=== PATIENT | female | born 1945 | race Caucasian/White ===

== ENCOUNTER 2016-08-24 09:26 | Emergency (ER) | payer MEDICARE, OTHER ==
[~2016-08-24 09:26] MED LIST: 'PARAFON FORTE500 M1 PO; ALEVE220 MG PO; ANTIVERT/2525 M1 PO; ASPIRIN ADULT L81 M1 PO; FLAX SEED OIL1000 MG PO; GAVISCON 80 MG-1 CT1 PO; LIPITOR20 MG PO; LOVASTATIN20 MG PO; LOVASTATIN40 MG PO; MEDROL DOSEPAK4 MG PO; MINIPRESS2 M2 PO; MYCOLOG CREAM 115 GM T; PREDNISONE10 MG PO; PROTONIX20 MG PO; RANITIDINE HCL150 M1 PO; TRAMADOL HCL50 MG PO; TYLENOL325 M1 PO; VITAMIN B121000 MC1 PO; ZOFRAN ODT4 MG SL; [UNRECOGNIZED DRUG - OTHER] PO
[2016-08-24 10:12] LABS: BASO % 0.4 % (0.0-1.0); EOS # 0.1 10*3/uL (0.0-0.4); EOS % 1.3 % (1.0-4.0); HEMATOCRIT 49.1 % (37.0-47.0); HEMOGLOBIN 16.8 g/dl (12.0-16.0); LYMPH # 1.1 10*3/uL (1.3-4.4); LYMPH % 24.6 % (27.0-41.0); MEAN CELL VOLUME 96.3 fl (81.0-99.0); MEAN CORPUSCULAR HGB 32.9 pg (27.0-31.0); MEAN CORPUSCULAR HGB CONC 34.2 g/dl (33.0-37.0); MEAN PLATELET VOLUME 9.1 fl (9.6-12.3); MONO # 0.5 10*3/uL (0.1-1.0); MONO % 11.3 % (3.0-9.0); NEUT # 2.8 10*3/uL (2.3-7.9); NEUT % 62.2 % (47.0-73.0); PLATELET COUNT AUTOMATED 158 10*3/uL (130-400); RED CELL DISTRI WIDTH 12.3 % (0-14.5); WHITE BLOOD COUNT 4.5 10*3/uL (4.8-10.8)
[2016-08-24 10:27] LABS: ALBUMIN 3.9 gm/dl (3.1-4.5); ALKALINE PHOSPHATASE 87 U/L (45-117); BILIRUBIN, TOTAL 0.5 mg/dl (0.2-1.0); BUN 17 mg/dl (7-24); CARBON DIOXIDE 24 mmol/L (21-32); CHLORIDE 111 mmol/L (98-107); EST GLOM FILT AFRICAN AMERICAN > 60 ml/min; GLUCOSE 119 mg/dL (65-99); SGOT/AST 26 IU/L (3-35); SGPT/ALT 45 U/L (12-78); SODIUM 144 mmol/L (136-145); TOTAL PROTEIN 7.4 gm/dL (6.4-8.2)
[2016-08-24] MEDS ORDERED: CIPRO500 MG PO (11:14)
[2016-08-24] MEDS ORDERED: DUONEB 3 MG/3 ML3 M1 INH (11:14)
== END 2016-08-24 11:53 | disposition home or self-care (01) ==
LOC: ED 09:26
PROVIDERS: Registered Nurse
DX: J18.1 Lobar pneumonia, unspecified organism (principal); F17.200 Nicotine dependence, unspecified, uncomplicated; Z88.0 Allergy status to penicillin; Z88.1 Allergy status to other antibiotic agents; Z88.6 Allergy status to analgesic agent; Z88.2 Allergy status to sulfonamides; Z88.8 Allergy status to other drugs, medicaments and biological substances; Z79.82 Long term (current) use of aspirin; Z79.899 Other long term (current) drug therapy

== ENCOUNTER 2016-08-28 08:17 | Inpatient (IN) | payer MEDICARE ==
[2016-08-28] VITALS (8 sets, daily range): BP systolic 130–174; BP diastolic 71–96
[~2016-08-28] VITALS: Ht 160 cm; Wt 63.6 kg
--- NOTE | ~2016-08-28 | PROC NOTE ---
[place], [place] PROCEDURE NOTE NAME: [facility]INGHAM [id number] UNIT #: [id number] ROOM: 518 DOCTOR: JACQUE JAFFE BIRTHDATE: [birth year] DOS: MODIFIED BARIUM SWALLOW PAST MEDICAL HISTORY: The patient is a pleasant female, referred for modified barium swallow with a right mid lobe pneumonia diagnosis and history includes COPD exacerbation, GERD, history of gastric ulcer, atelectasis. She is currently on a regular diet, been n.p.o. where she had a bronchoscopy this morning as well as was n.p.o. until this study was completed. The patient reports history of bronchitis, but denies history of pneumonia. METHODS AND PROCEDURES: The patient was alert. Able to answer questions, communicate adequately, follow commands. She fed herself. She was seated upright in a wheelchair and the lateral view was taken. This study was done in conjunction with radiologist, Dr. Ronquillo. The patient was administered thin liquid via cup in single and sequential sips, pudding with barium paste of a teaspoon and a piece of turkey sandwich coated with barium. ORAL PHASE: The patient demonstrates normal oral phase, adequate mastication, adequate bolus formation, propulsion of a bolus. PHARYNGEAL PHASE: The patient demonstrated no residue. She demonstrated adequate airway protection. No penetration or aspiration. TREE DRILLER felt that her laryngeal elevation appeared to be slightly reduced, but it did not affect her swallow. She had a very functional normal swallow with all consistencies. RECOMMENDATIONS AND IMPRESSION: No therapy, no diet recommendations at this time due to functional oral and pharyngeal phases of the swallow with all consistencies. Thank you for this referral. JACQUE JAFFE CM:PROCNOTE:PROCEDURE NOTE [id number] JACQUE JAFFE
--- NOTE | ~2016-08-28 | CON ---
[place], [place] REPORT OF CONSULTATION NAME: KIERAN WILLINGHAM [facility] #: [id number] UNIT #: [id number] ROOM: 518 DOCTOR: DRU KILPATRICK MD BIRTHDATE: [birth year] DOS: 08/29/2016 REASON FOR CONSULTATION: Assess the patient for current abnormal findings on the CT scan of the chest and ongoing acute respiratory complaints with right middle lobe atelectasis. CONSULTATION REQUESTED BY: Hospitalist Services. HISTORY OF PRESENT ILLNESS: This is a 71-year-old white female for the patient who has been admitted to the hospital for the patient on 08/28/2016. She has been seen by Dr. Garrett Greene. The patient stated she has developed symptoms of increased chest congestion, coughing, shortness of breath for 2-1/2 weeks for this patient approximately. She has been noted progressive worsening of respiratory symptoms, trying to contact her physician, but not noted successful for any call back. She finally presented to the Emergency Room for this patient for further assessment. The patient was seen in the Emergency Room for the patient recently and started on the use of the corticosteroids as well as ciprofloxacin. The patient stated that she has been told she has some kind of pneumonia, with use of current medications and followup with the primary care physician was advised. However, the patient returned back to the Emergency Room as the symptoms had been noted significantly worsening and admitted to the hospital on 08/28/2016. The patient denies symptoms of chest pain. Coughing has been noted severe with minimal sputum expectoration. She has been noted symptoms of shortness of breath, occurs with exertion, with wheezing and tightness in the chest. She also stated that she does not have any chest pain, but complains of pain in the rib because of severe excessive cough. REVIEW OF SYSTEMS: CONSTITUTIONAL: Fatigue and tiredness noted without any fever or chills. EYES: Denies burning, redness, dryness for this patient, or discharge. EARS, NOSE, AND THROAT: No sore throat, hoarseness, otalgia, postnasal drainage, or epistaxis. CARDIOVASCULAR: Denies anginal pain, edema or pain of lower extremities. GASTROINTESTINAL: Denies nausea, vomiting, diarrhea, abdominal pain, hematemesis, melena, dysphagia, or abnormal weight loss history. GENITOURINARY: Denies dysuria, suprapubic pain, hematuria. MUSCULOSKELETAL: Denies acute joint pain, redness, or tenderness. SKIN: Denies lesions or rashes. CENTRAL NERVOUS SYSTEM: Denies any dizziness, headache, diplopia, or syncopal episodes. Remaining systems were reviewed with the patient, they were noted all negative. PAST MEDICAL HISTORY: Reported: 1. Gastroesophageal reflux. 2. Bronchitis, which occurs yearly as per patient and treated with the antibiotics for the patient. 3. Hyperlipidemia. 4. Peptic ulcer disease. [place], [place] REPORT OF CONSULTATION NAME: KIERAN WILLINGHAM UNIT #: [id number] ROOM: 518 DOCTOR: DRU KILPATRICK MD BIRTHDATE: [birth year] PAST SURGICAL HISTORY: Denies any major surgeries. SOCIAL HISTORY: The patient stated that she lives in her own home. The patient said she is . Does not have any children. She has been noted history of tobacco use for this patient at younger age, smoked about 3-5 cigarettes a day. Stated that she has not smoked cigarettes for the past 2-1/2 weeks. Denies history of alcohol use or any illicit drug use. FAMILY HISTORY: Both parents have been from complications related to the heart problem and diabetes mellitus. MEDICATIONS: The home medications for the patient, which were listed at the time of admission by the nursing staff for the patient and medication reconciliation use of p.r.n. Tylenol, aspirin, recent prescription of ciprofloxacin, tapering prednisone, vitamin B12, fish oil, flaxseed oil, DuoNeb, Minipress, and ranitidine. The patient also using Lipitor. DRUG ALLERGIES: NOTED MULTIPLE ALLERGIES THAT INCLUDE SULFA DRUGS, PENICILLIN, NEOSPORIN, CEFTIN, KEFLEX, TRILIPIX, DOXYCYCLINE, DILTIAZEM, ERYTHROMYCIN, LEVAQUIN, LISINOPRIL, NIACIN, DILANTIN, AND TRAMADOL. PHYSICAL EXAMINATION: GENERAL: This is a 71-year-old female who has been noted somewhat nervous and anxious at this time. The patient's height was recorded by the nursing staff at the time of admission with height of 5 feet 3 inches, weight of 140 pounds, BMI 24.8. VITAL SIGNS: Normal temperature, respiratory rate 20-18, heart rate 75-81, blood pressure 119/66-120/89. The pulse oxygen saturation noted on room air 94% saturation. HEENT: Examination shows head was atraumatic. Eyes nonicterus. NECK: Supple. CARDIOVASCULAR: ____. LUNGS: Noted with generalized reduction of the breath sounds were noted with diffuse expiratory wheezing in the lungs bilaterally. There were no crackles. ABDOMEN: Soft, nontender. Bowel sounds are present. EXTREMITIES: Show no edema, clubbing, cyanosis. CENTRAL NERVOUS SYSTEM: Cranial nerves 2-12 intact. No focal deficits. MUSCULOSKELETAL: No acute deformities. SKIN: No lesions or rashes. LABORATORY DATA: CBC of the patient of 08/24/2016 shows in the Emergency Room visit, WBC count 4.5, hemoglobin 16.8, hematocrit 49.1 with a normal platelet count. CMP for this patient on that day for the patient was noted with BUN and creatinine was normal. Chest x-ray of the patient that was done 08/24/2016 for the patient showed right middle lobe pneumonia. CBC that was done for the patient on 08/28/2016, WBC count was normal, hemoglobin 16.9, hematocrit 49.1, platelet count was normal. Lactic acid yesterday normal. CMP of the patient noted BUN and creatinine for this patient and the other CMP normal. Chest x-ray that was done yesterday for the patient essentially noted with reduction of the previously noted infiltration with area of atelectasis will be considered. CT [place], [place] REPORT OF CONSULTATION NAME: KIERAN WILLINGHAM UNIT #: [id number] ROOM: 518 DOCTOR: [facility] BIR[facility] [birth year] scan of the chest that was done yesterday for the patient was personally reviewed, shows the patient was noted with pleural based density with area of atelectasis and infiltration for the patient as well as right middle lobe atelectasis for the patient as well. A 3 mm noncalcified pulmonary nodule noted in the left upper lung as well. IMPRESSION: 1. The patient currently admitted to the hospital with history of multiple antibiotic allergies, mostly all the classes, has been treated for this patient for acute exacerbation of ____ chronic obstructive pulmonary disease with past history of tobacco use and bronchial asthma and acute exacerbation with worsening of symptoms. 2. Current infiltration with area of atelectasis of the patient's right middle lobe, rule out endobronchial obstruction for the patient from the mucus. Any endobronchial lesions or other etiology remains in consideration. 3. A 3 mm left upper lobe pulmonary nodule for the patient was also noted for the patient. At this time, the significance was unknown. 4. General anxiety disorder as well for this patient was noted to significant anxiety as well. PLAN OF TREATMENT: For further assessment, the patient has been suggested about fiberoptic bronchoscopy for the patient to help assess the right middle lobe for this patient's pathology. Based on that, further change in treatment will be recommended. In the meantime, continue antibiotics. Continue medical management of acute exacerbation of COPD/bronchial asthma with use of the corticosteroids and frequent bronchodilators administration. Other supportive plan of management to be continued as well as in progress. Further treatment changes will be done based on progression of the illnesses. The patient accepted the bronchoscopy for the patient after the explanation of the risks and the benefits. She is already kept n.p.o. past midnight for this patient and will be undergoing the bronchoscopy today. The current abnormality which is noted on CT scan definitely needs to be monitored for the patient with further followup CT scan after the appropriate treatment completion in about 3-4 weeks to reassess to document the resolution of current abnormality for any underlying mass lesion present for this patient would require further addition assessment. The diaphragm also appeared to be somewhat elevated for this patient with the current study as well, to be assessed for possibility to rule out any diaphragmatic paresis or paralysis. The sniff test for this patient will be ordered for this patient for that purpose of this patient to rule out the right diaphragmatic paralysis. Pulmonary nodule in the left upper lung will be monitored with followup CT scans. Continued abstinence from tobacco use was advised. Thanks for allowing me to participate in the care of this patient. [place], [place] REPORT OF CONSULTATION NAME: KIERAN WILLINGHAM UNIT #: [id number] ROOM: 518 DOCTOR: DRU KILPATRICK MD BIRTHDATE: [address] MD CM:CONSTR:REPORT OF CONSULTATION 1141 08/29/16 1607 interface
--- NOTE | ~2016-08-28 | PROC NOTE ---
[place], [place] PROCEDURE NOTE NAME: [facility]: [id number] UNIT #: [id number] ROOM: 518 DOCTOR: ARIANA CAROLINA MD,DRU BIRTHDATE: [birth year] DOS: 08/29/2016 PREOPERATIVE DIAGNOSIS: The patient with current abnormal finding on CT scan of the chest, rule out endobronchial obstruction. POSTOPERATIVE DIAGNOSES: The patient with current abnormal finding on CT scan of the chest, rule out endobronchial obstruction with obstruction of the right mainstem bronchus of the patient noted with large amount of mucopurulent material for this patient. There were no discrete endobronchial lesions noted. PROCEDURE: Removal of the mucus plugs ____ noted in the remaining endobronchial tree. PROCEDURE DESCRIPTION: Informed consent obtained from the patient. The patient already n.p.o. past midnight for the procedure. Conscious sedation administered by the Anesthesia Department. After achieving appropriate sedation, airway introduced into the mouth. Bronchoscope advanced into the airway into the laryngeal area. Epiglottis and vocal cords were seen. The bronchoscope advanced to the vocal cord into the tracheal lumen. Tracheal lumen was identified, noted moderate amount of mucopurulent material, suctioned out at the kiya level. Left upper, lingular lower lobe bronchial opening noted moderate thick mucus secretions and mild purulent secretions causing impaction of the endobronchial subsegments bilaterally, which was suctioned out with the help of normal saline wash and sent for cultures. Right mainstem bronchus noted copious amount of mucopurulent material which was suctioned out. Almost complete occlusion of the right middle lobe endobronchial tree was noted with similar material which was mucopurulent for the patient, removed with the help of normal saline wash. There were no discrete endobronchial lesions noted up to second and third generation endobronchial tree. Right lower lobe opening for this patient and left upper lobe opening for the patient was also clear from the mucus impaction as well. Procedure well tolerated. The BAL specimen was obtained from the right middle lobe as well. The patient tolerated the procedure well without any complications. Postoperative findings will be discussed with the patient once the patient recovers the effects of acute sedation. DRU LANE MD CM:PROCNOTE:PROCEDURE NOTE [id number] [id number] DRU CAROLINA MD
--- NOTE | ~2016-08-28 | PR ---
[place], [place] PROGRESS NOTE NAME: KIERAN WILLINGHAM [facility] #: [id number] UNIT #: [id number] ROOM: 518 DOCTOR: ARIANA CAROLINA MD,DRU BIRTHDATE: [birth year] DOS: 08/31/2016 SUBJECTIVE: She has been showing progressive reduction and improvement in the respiratory symptoms gradually. Coughing has been subsiding. There were no symptoms of chest pain or any abdominal pain. OBJECTIVE: VITAL SIGNS: For the patient which has been recorded showed normal temperature, respiratory rate 18, heart rate of 62, blood pressure 128/80. The pulse oxygen saturation of the patient recorded as 95% on room air. HEENT: Examination shows no acute change. NECK: Supple. CARDIOVASCULAR: S1, S2 audible. LUNGS: Noted without any wheezing or crackles. ABDOMEN: Soft, nontender. LABORATORY DATA: CBC of this morning, WBC count 17.4, remaining CBC was normal. Chest x-ray, the patient was noted with significant reduction and improvement in the aeration of the lungs for the patient with acute pneumonia. Culture of the bronchial washing of the patient and the spontaneous sputum culture was noted as normal maral. IMPRESSION: The patient with progressive resolution and improvement has been noted for acute exacerbation of COPD with acute bronchitis as well as resolving acute pneumonia progressively with current medical management. PLAN OF TREATMENT: The patient could be considered discharge on tapering dose of prednisone and bronchodilators, antibiotics for this patient. Other supportive therapy, plan of management to be continued as well as in progress. Abstinence from tobacco use was recommended. DRU LANE MD CM:PNTRANS [id number] DRU CAROLINA MD 08/31/16 2333 interface
--- NOTE | ~2016-08-28 | PR ---
[place], [place] PROGRESS NOTE NAME: KIERAN WILLINGHAM UNIT #: [id number] ROOM: 518 DOCTOR: ARIANA CAROLINA MD,DRU BIRTHDATE: [birth year] DOS: 08/30/2016 SUBJECTIVE: The patient seen and examined on 08/30/2016. She has been noted comfortable at this time with reduction of symptoms of cough. She has been noted sputum expectoration. Bronchoscopy completed yesterday without any difficulty. Denies symptoms of chest pain or any abdominal pain. OBJECTIVE: VITAL SIGNS: Normal temperature, respiratory rate 18, heart rate of 60, blood pressure 132/82. Intake for the patient was . Output 2300 mL. Pulse oxygen saturation on room air 93% saturation. HEENT: Showed no acute change. NECK: Supple. CARDIOVASCULAR SYSTEM: S1, S2 audible. LUNGS: The patient noted with scattered wheezing of the lungs. Crackles noted in the right lung. ABDOMEN: Soft, nontender. LABORATORY DATA: The bronchial washing of the patient, Gram stain for the patient was noted with normal maral preliminary in the culture results. The Gram stain noted many white blood cells, moderate epithelial cells, rare gram-positive cocci in pairs. CMP of the patient that was done on 08/30/2016 shows glucose 148, BUN and creatinine was normal. Albumin 2.8. Total protein 5.8. CBC: WBC count 14.2 today, hemoglobin and hematocrit were normal. Blood culture from the reported no bacterial growth preliminary and final cultures results were pending. Modified barium swallow was noted as normal. IMPRESSION: 1. The patient who has been currently treated in the hospital noted with acute pneumonia with area of superimposed atelectasis the patient in the right middle lobe. 2. 3 mm solitary nodule for the patient was noted in the left upper lobe as well. 3. Generalized anxiety disorder. PLAN OF TREATMENT: Monitor culture results. Repeat chest x-ray in the morning for reassessment. Continuation of the bronchodilators. Modification of antibiotics. The patient based on the culture results. Other supportive therapy, plan of management as well. Usual care. Further treatment changes will be done based on the patient progression of the illness. [place], [place] PROGRESS NOTE NAME: KIERAN WILLINGHAM UNIT #: [id number] ROOM: 518 DOCTOR: DRU KILPATRICK MD BIRTHDATE: [address] MD CM:CHESTER [id number] DRU CAROLINA MD 08/30/16 1335 interface
[~2016-08-28 08:17] MED LIST changes: +CIPRO500 MG PO; +DUONEB 3 MG/3 ML3 M1 INH
[2016-08-28 09:18] LABS: BASO % 0.3 % (0.0-1.0); EOS # 0.1 10*3/uL (0.0-0.4); EOS % 0.9 % (1.0-4.0); HEMATOCRIT 49.1 % (37.0-47.0); HEMOGLOBIN 16.9 g/dl (12.0-16.0); IG # 0.1 10*3/uL (0.0-0.1); LYMPH # 1.5 10*3/uL (1.3-4.4); LYMPH % 21.7 % (27.0-41.0); MEAN CELL VOLUME 95.5 fl (81.0-99.0); MEAN CORPUSCULAR HGB 32.9 pg (27.0-31.0); MEAN CORPUSCULAR HGB CONC 34.4 g/dl (33.0-37.0); MEAN PLATELET VOLUME 8.7 fl (9.6-12.3); MONO # 0.3 10*3/uL (0.1-1.0); MONO % 4.9 % (3.0-9.0); NEUT # 4.8 10*3/uL (2.3-7.9); NEUT % 71.3 % (47.0-73.0); PLATELET COUNT AUTOMATED 162 10*3/uL (130-400); RED BLOOD COUNT 5.14 10*6/uL (4.10-5.10); WHITE BLOOD COUNT 6.7 10*3/uL (4.8-10.8)
[2016-08-28 09:34] LABS: ALBUMIN 3.7 gm/dl (3.1-4.5); ALKALINE PHOSPHATASE 82 U/L (45-117); BILIRUBIN, TOTAL 0.7 mg/dl (0.2-1.0); BUN 12 mg/dl (7-24); CARBON DIOXIDE 26 mmol/L (21-32); CHLORIDE 109 mmol/L (98-107); EST GLOM FILT AFRICAN AMERICAN > 60 ml/min; GLUCOSE 112 mg/dL (65-99); POTASSIUM 3.9 mmol/L (3.5-5.1); SGOT/AST 17 IU/L (3-35); SGPT/ALT 35 U/L (12-78); SODIUM 143 mmol/L (136-145); TOTAL PROTEIN 7.1 gm/dL (6.4-8.2)
[2016-08-28 09:57] LABS: BILIRUBIN NEGATIVE (NEGATIVE); BLOOD NEGATIVE (NEGATIVE); CLARITY SL CLOUDY (CLEAR); COLOR YELLOW (YELLOW); GLUCOSE NEGATIVE (NEGATIVE); KETONE NEGATIVE (NEGATIVE); LEUKO ESTERASE NEGATIVE (NEGATIVE); NITRITE NEGATIVE (NEGATIVE); PROTEIN NEGATIVE (NEGATIVE); SPECIFIC GRAVITY >= 1.030 (1.005-1.030); UROBILINOGEN 0.2 E.U./dl (0.2-1.0)
[2016-08-28 10:14] LABS: BACTERIA TRACE; URINE REFLEX COMMENT NO (NO); WBC 0-2 wbc/hpf (0-5)
[2016-08-28 10:15] LABS: MUCOUS 1+
[2016-08-28 18:11] LABS: CKMB 1.2 ng/ml (0.5-3.6); CPK 98 U/L (26-192)
[2016-08-28 18:15] LABS: TROPONIN I < 0.015 ng/ml (<0.045)
[2016-08-28 21:24] LABS: BILIRUBIN NEGATIVE (NEGATIVE); BLOOD NEGATIVE (NEGATIVE); CLARITY SL CLOUDY (CLEAR); COLOR YELLOW (YELLOW); GLUCOSE 3+ (NEGATIVE); KETONE TRACE (NEGATIVE); LEUKO ESTERASE NEGATIVE (NEGATIVE); NITRITE NEGATIVE (NEGATIVE); PROTEIN NEGATIVE (NEGATIVE); UROBILINOGEN 0.2 E.U./dl (0.2-1.0)
[2016-08-28 21:32] LABS: BACTERIA 1+; URINE REFLEX COMMENT NO (NO)
[2016-08-29] VITALS (9 sets, daily range): BP systolic 119–159; BP diastolic 61–89
[2016-08-29 00:49] LABS: CKMB 1.5 ng/ml (0.5-3.6); CPK 95 U/L (26-192)
[2016-08-29 00:50] LABS: TROPONIN I < 0.015 ng/ml (<0.045)
[2016-08-29 06:34] LABS: BASO % 0.1 % (0.0-1.0); HEMATOCRIT 45.2 % (37.0-47.0); HEMOGLOBIN 15.4 g/dl (12.0-16.0); IG # 0.2 10*3/uL (0.0-0.1); LYMPH # 1.1 10*3/uL (1.3-4.4); LYMPH % 7.3 % (27.0-41.0); MEAN CELL VOLUME 96.2 fl (81.0-99.0); MEAN CORPUSCULAR HGB 32.8 pg (27.0-31.0); MEAN CORPUSCULAR HGB CONC 34.1 g/dl (33.0-37.0); MEAN PLATELET VOLUME 9.3 fl (9.6-12.3); MONO # 0.4 10*3/uL (0.1-1.0); MONO % 2.4 % (3.0-9.0); NEUT # 13.2 10*3/uL (2.3-7.9); NEUT % 89.2 % (47.0-73.0); PLATELET COUNT AUTOMATED 201 10*3/uL (130-400); WHITE BLOOD COUNT 14.9 10*3/uL (4.8-10.8)
[2016-08-29 06:42] LABS: CKMB 1.9 ng/ml (0.5-3.6)
[2016-08-29 06:47] LABS: CPK 65 U/L (26-192); TROPONIN I < 0.015 ng/ml (<0.045)
[2016-08-29 06:48] LABS: HEMOGLOBIN A1c 5.3 % (4.8-5.6)
[2016-08-29 07:06] LABS: ALBUMIN 3.1 gm/dl (3.1-4.5); ALKALINE PHOSPHATASE 93 U/L (45-117); BILIRUBIN, TOTAL 0.4 mg/dl (0.2-1.0); BUN 15 mg/dl (7-24); CARBON DIOXIDE 20 mmol/L (21-32); CHLORIDE 113 mmol/L (98-107); CHOLESTEROL 127 mg/dL (<200); EST GLOM FILT AFRICAN AMERICAN > 60 ml/min; FREE T4 1.06 ng/dl (0.76-1.46); GLUCOSE 163 mg/dL (65-99); HDL CHOLESTEROL 44 mg/dl (40-60); LDL CHOLESTEROL 58 mg/dL (9-159); PHOSPHOROUS 2.3 mg/dL (2.5-4.9); POTASSIUM 3.9 mmol/L (3.5-5.1); SGOT/AST 18 IU/L (3-35); SGPT/ALT 31 U/L (12-78); SODIUM 145 mmol/L (136-145); TOTAL PROTEIN 6.3 gm/dL (6.4-8.2); TRIGLYCERIDES 125 mg/dl (<150); VLDL CHOLESTEROL 25 mg/dL (6-40)
[2016-08-29 07:07] LABS: INTERNATIONAL NORM RATIO 0.9 (2.0-3.5)
[2016-08-29 07:11] LABS: THYROID STIM HORMONE (HS) 0.265 uIU/ml (0.358-4.75)
[2016-08-29 07:44] LABS: VITAMIN D, 25-HYDROXY 31.6 ng/mL (30-100)
[2016-08-29 07:45] LABS: FOLIC ACID 15.61 ng/mL (>5.38)
[2016-08-30] VITALS (7 sets, daily range): BP systolic 88–138; BP diastolic 46–82
[2016-08-30 07:19] LABS: BASO % 0.1 % (0.0-1.0); HEMATOCRIT 43.2 % (37.0-47.0); HEMOGLOBIN 14.6 g/dl (12.0-16.0); IG # 0.2 10*3/uL (0.0-0.1); MEAN CELL VOLUME 97.5 fl (81.0-99.0); MEAN CORPUSCULAR HGB CONC 33.8 g/dl (33.0-37.0); MEAN PLATELET VOLUME 8.9 fl (9.6-12.3); MONO # 0.4 10*3/uL (0.1-1.0); MONO % 2.9 % (3.0-9.0); NEUT # 12.6 10*3/uL (2.3-7.9); NEUT % 88.9 % (47.0-73.0); PLATELET COUNT AUTOMATED 177 10*3/uL (130-400); RED BLOOD COUNT 4.43 10*6/uL (4.10-5.10); RED CELL DISTRI WIDTH 12.4 % (0-14.5); WHITE BLOOD COUNT 14.2 10*3/uL (4.8-10.8)
[2016-08-30 07:47] LABS: ALBUMIN 2.9 gm/dl (3.1-4.5); ALKALINE PHOSPHATASE 67 U/L (45-117); BILIRUBIN, TOTAL 0.5 mg/dl (0.2-1.0); BUN 13 mg/dl (7-24); CARBON DIOXIDE 24 mmol/L (21-32); CHLORIDE 114 mmol/L (98-107); EST GLOM FILT AFRICAN AMERICAN > 60 ml/min; GLUCOSE 148 mg/dL (65-99); POTASSIUM 4.3 mmol/L (3.5-5.1); SGOT/AST 15 IU/L (3-35); SGPT/ALT 28 U/L (12-78); SODIUM 145 mmol/L (136-145); TOTAL PROTEIN 5.8 gm/dL (6.4-8.2)
[2016-08-30 12:09] LABS: ACID FAST SPEC PROCESSING Concentration (.)
[2016-08-31] VITALS: BP 118/63
[2016-08-31 06:00] VITALS: BP 130/78
[2016-08-31 06:15] LABS: HEMATOCRIT 43.4 % (37.0-47.0); HEMOGLOBIN 14.9 g/dl (12.0-16.0); MEAN CELL VOLUME 97.3 fl (81.0-99.0); MEAN CORPUSCULAR HGB 33.4 pg (27.0-31.0); MEAN CORPUSCULAR HGB CONC 34.3 g/dl (33.0-37.0); MEAN PLATELET VOLUME 9.1 fl (9.6-12.3); PLATELET COUNT AUTOMATED 195 10*3/uL (130-400); RED BLOOD COUNT 4.46 10*6/uL (4.10-5.10); RED CELL DISTRI WIDTH 12.4 % (0-14.5); WHITE BLOOD COUNT 17.4 10*3/uL (4.8-10.8)
[2016-08-31 06:39] LABS: BUN 17 mg/dl (7-24); CARBON DIOXIDE 24 mmol/L (21-32); CHLORIDE 110 mmol/L (98-107); EST GLOM FILT AFRICAN AMERICAN > 60 ml/min; GLUCOSE 152 mg/dL (65-99); POTASSIUM 4.4 mmol/L (3.5-5.1); SODIUM 143 mmol/L (136-145)
[2016-08-31 06:53] LABS: METAMYELOCYTES 2 % (0-0); MONOCYTE # 0.3 10*3/uL (0.1-1.0); NEUTROPHIL # 15.7 10*3/uL (2.3-7.9); NEUTROPHILS 90 % (47-73); PLATELET SUFFICIENCY NORMAL (NORMAL); TOTAL CELLS COUNTED 100 #CELLS
[2016-08-31 08:00] VITALS: BP 128/80
[2016-08-31 12:00] VITALS: BP 122/76
[2016-08-31] MEDS ORDERED: MUCINEX ER600 MG PO (14:06)
[2016-08-31] MEDS ORDERED: PREDNISONE10 MG PO (14:06)
[2016-08-31] MEDS ORDERED: LEVAQUIN750 M1 PO (14:06)
[2016-08-31] MEDS ORDERED: CIPRO500 MG PO (14:09)
[2016-08-31] MEDS ORDERED: DUONEB 3 MG/3 ML3 M1 INH (14:20)
== END 2016-08-31 16:00 | disposition home or self-care (01) | DRG 163 ==
LOC: ED 08:17 → EDHOLD 11:13 → 5E 11:13
PROVIDERS: Emergency Medicine; Hospitalist; Internal Medicine; Internal Medicine Critical Care Medicine
PROC: BD1BYZZ Fluoroscopy of Mouth/Oropharynx using Other Contrast (ICD-10-PCS; principal; 2016-08-29)
PROC: 0BCD8ZZ Extirpation of Matter from Right Middle Lung Lobe, Via Natural or Artificial Opening Endoscopic (ICD-10-PCS; 2016-08-29)
PROC: 0BC88ZZ Extirpation of Matter from Left Upper Lobe Bronchus, Via Natural or Artificial Opening Endoscopic (ICD-10-PCS; 2016-08-29)
PROC: 0BCB8ZZ Extirpation of Matter from Left Lower Lobe Bronchus, Via Natural or Artificial Opening Endoscopic (ICD-10-PCS; 2016-08-29)
PROC: 0BC48ZZ Extirpation of Matter from Right Upper Lobe Bronchus, Via Natural or Artificial Opening Endoscopic (ICD-10-PCS; 2016-08-29)
PROC: 0BC58ZZ Extirpation of Matter from Right Middle Lobe Bronchus, Via Natural or Artificial Opening Endoscopic (ICD-10-PCS; 2016-08-29)
PROC: 0BC98ZZ Extirpation of Matter from Lingula Bronchus, Via Natural or Artificial Opening Endoscopic (ICD-10-PCS; 2016-08-29)
PROC: 0BC68ZZ Extirpation of Matter from Right Lower Lobe Bronchus, Via Natural or Artificial Opening Endoscopic (ICD-10-PCS; 2016-08-29)
DX: J44.0 Chronic obstructive pulmonary disease with (acute) lower respiratory infection (principal); J18.9 Pneumonia, unspecified organism; E78.5 Hyperlipidemia, unspecified; J44.1 Chronic obstructive pulmonary disease with (acute) exacerbation; F17.210 Nicotine dependence, cigarettes, uncomplicated; K21.9 Gastro-esophageal reflux disease without esophagitis; J20.9 Acute bronchitis, unspecified; J45.909 Unspecified asthma, uncomplicated; F41.1 Generalized anxiety disorder; R91.1 Solitary pulmonary nodule; Z88.1 Allergy status to other antibiotic agents; Z88.8 Allergy status to other drugs, medicaments and biological substances; Z79.82 Long term (current) use of aspirin; Z79.2 Long term (current) use of antibiotics; Z79.899 Other long term (current) drug therapy; Z87.11 Personal history of peptic ulcer disease; Z83.3 Family history of diabetes mellitus; Z88.0 Allergy status to penicillin; Z71.6 Tobacco abuse counseling; Z82.49 Family history of ischemic heart disease and other diseases of the circulatory system

== ENCOUNTER → 2016-10-08 | Outpatient (CLI) | payer MEDICARE ==
[~2016-10-08] MED LIST changes: +LEVAQUIN750 M1 PO; +MUCINEX ER600 MG PO
== END | disposition home or self-care (01) ==
LOC: RAD 12:33
DX: M25.552 Pain in left hip (principal); R10.30 Lower abdominal pain, unspecified

== ENCOUNTER 2017-05-23 11:54 | Emergency (ER) | payer MEDICARE ==
[~2017-05-23] VITALS: Ht 160 cm; Wt 63.5 kg
[2017-05-23] MEDS ORDERED: FLONASE ALLERG9.9 ML NAS (13:55)
[2017-05-23] MEDS ORDERED: ROBITUSSIN DM 105 ML PO (13:55)
[2017-05-23] MEDS ORDERED: CLARITIN10 MG PO (13:55)
[2017-05-23] MEDS ORDERED: PREDNISONE10 MG PO (13:55)
== END 2017-05-23 14:53 | disposition home or self-care (01) ==
LOC: ED 11:54
DX: J20.9 Acute bronchitis, unspecified (principal); K21.9 Gastro-esophageal reflux disease without esophagitis; E78.5 Hyperlipidemia, unspecified; F17.210 Nicotine dependence, cigarettes, uncomplicated; Z87.01 Personal history of pneumonia (recurrent); Z79.82 Long term (current) use of aspirin; Z79.899 Other long term (current) drug therapy; Z88.6 Allergy status to analgesic agent; Z88.0 Allergy status to penicillin; Z88.2 Allergy status to sulfonamides; Z88.3 Allergy status to other anti-infective agents; Z88.8 Allergy status to other drugs, medicaments and biological substances

== ENCOUNTER 2017-07-20 11:12 | Emergency (ER) | payer MEDICARE ==
[~2017-07-20] VITALS: Ht 160 cm; Wt 61.2 kg
[~2017-07-20 11:12] MED LIST changes: +CLARITIN10 MG PO; +FLONASE ALLERG9.9 ML NAS; +ROBITUSSIN DM 105 ML PO
[2017-07-20 12:24] LABS: BASO % 0.4 % (0.0-1.0); EOS % 0.4 % (1.0-4.0); HEMATOCRIT 49.8 % (37.0-47.0); HEMOGLOBIN 16.9 g/dl (12.0-16.0); LYMPH # 1.4 10*3/uL (1.3-4.4); LYMPH % 17.2 % (27.0-41.0); MEAN CORPUSCULAR HGB 33.3 pg (27.0-31.0); MEAN CORPUSCULAR HGB CONC 33.9 g/dl (33.0-37.0); MEAN PLATELET VOLUME 9.2 fl (9.6-12.3); MONO # 0.5 10*3/uL (0.1-1.0); MONO % 5.6 % (3.0-9.0); NEUT # 6.4 10*3/uL (2.3-7.9); NEUT % 75.6 % (47.0-73.0); PLATELET COUNT AUTOMATED 163 10*3/uL (130-400); RED BLOOD COUNT 5.08 10*6/uL (4.10-5.10); RED CELL DISTRI WIDTH 12.6 % (0-14.5); WHITE BLOOD COUNT 8.4 10*3/uL (4.8-10.8)
[2017-07-20 12:42] LABS: ALBUMIN 3.9 gm/dl (3.1-4.5); ALKALINE PHOSPHATASE 83 U/L (45-117); BUN 15 mg/dl (7-24); CHLORIDE 108 mmol/L (98-107); CREATININE 0.75 mg/dL (0.55-1.02); POTASSIUM 4.5 mmol/L (3.5-5.1); SGOT/AST 19 IU/L (3-35); SGPT/ALT 33 U/L (12-78); SODIUM 143 mmol/L (136-145); TOTAL PROTEIN 7.3 gm/dL (6.4-8.2)
[2017-07-20 12:43] LABS: TROPONIN I < 0.015 ng/ml (<0.045)
[2017-07-20] MEDS ORDERED: PREDNISONE10 MG PO (14:39)
== END 2017-07-20 15:04 | disposition home or self-care (01) ==
LOC: ED 11:12
PROVIDERS: Nurse Practitioner Family
DX: J20.9 Acute bronchitis, unspecified (principal); R03.0 Elevated blood-pressure reading, without diagnosis of hypertension; J44.1 Chronic obstructive pulmonary disease with (acute) exacerbation; K21.9 Gastro-esophageal reflux disease without esophagitis; Z88.0 Allergy status to penicillin; Z88.2 Allergy status to sulfonamides; Z88.1 Allergy status to other antibiotic agents; Z88.5 Allergy status to narcotic agent; Z79.82 Long term (current) use of aspirin; Z79.899 Other long term (current) drug therapy

== ENCOUNTER 2017-08-05 09:05 | Emergency (ER) | payer MEDICARE ==
[~2017-08-05] VITALS: Wt 61.2 kg
[2017-08-05 10:04] LABS: BASO % 0.4 % (0.0-1.0); EOS # 0.1 10*3/uL (0.0-0.4); EOS % 1.3 % (1.0-4.0); HEMATOCRIT 54.1 % (37.0-47.0); HEMOGLOBIN 17.9 g/dl (12.0-16.0); LYMPH # 1.6 10*3/uL (1.3-4.4); LYMPH % 20.1 % (27.0-41.0); MEAN CELL VOLUME 100.4 fl (81.0-99.0); MEAN CORPUSCULAR HGB 33.2 pg (27.0-31.0); MEAN CORPUSCULAR HGB CONC 33.1 g/dl (33.0-37.0); MEAN PLATELET VOLUME 8.7 fl (9.6-12.3); MONO # 0.5 10*3/uL (0.1-1.0); MONO % 6.2 % (3.0-9.0); NEUT # 5.6 10*3/uL (2.3-7.9); NEUT % 71.5 % (47.0-73.0); PLATELET COUNT AUTOMATED 151 10*3/uL (130-400); RED BLOOD COUNT 5.39 10*6/uL (4.10-5.10); RED CELL DISTRI WIDTH 12.7 % (0-14.5); WHITE BLOOD COUNT 7.8 10*3/uL (4.8-10.8)
[2017-08-05 10:11] LABS: INTERNATIONAL NORM RATIO 0.9 (2.0-3.5)
[2017-08-05 10:18] LABS: ALKALINE PHOSPHATASE 78 U/L (45-117); BUN 16 mg/dl (7-24); CHLORIDE 105 mmol/L (98-107); CREATININE 0.72 mg/dL (0.55-1.02); POTASSIUM 4.1 mmol/L (3.5-5.1); SGOT/AST 20 IU/L (3-35); SGPT/ALT 39 U/L (12-78); SODIUM 140 mmol/L (136-145); TOTAL PROTEIN 7.5 gm/dL (6.4-8.2)
[2017-08-05] MEDS ORDERED: NORCO 5-325 TA1 EACH PO (13:15)
== END 2017-08-05 13:34 | disposition home or self-care (01) ==
LOC: ED 09:05
PROVIDERS: Physician Assistant
DX: R07.89 Other chest pain (principal); R07.81 Pleurodynia; Z88.0 Allergy status to penicillin; Z88.2 Allergy status to sulfonamides; Z88.1 Allergy status to other antibiotic agents; Z88.8 Allergy status to other drugs, medicaments and biological substances; Z79.82 Long term (current) use of aspirin; Z79.899 Other long term (current) drug therapy

== ENCOUNTER 2017-10-23 15:01 | Emergency (ER) | payer MEDICARE ==
[~2017-10-23] VITALS: Ht 160 cm; Wt 63.5 kg
[~2017-10-23 15:01] MED LIST changes: +NORCO 5-325 TA1 EACH PO
[2017-10-23] MEDS ORDERED: PREDNISONE10 MG PO (15:22)
[2017-10-23] MEDS ORDERED: CHLORZOXAZONE500 M2 PO (15:22)
== END 2017-10-23 16:32 | disposition home or self-care (01) ==
LOC: ED 15:01
DX: M54.32 Sciatica, left side (principal); M25.552 Pain in left hip; R03.0 Elevated blood-pressure reading, without diagnosis of hypertension; K21.9 Gastro-esophageal reflux disease without esophagitis; E78.5 Hyperlipidemia, unspecified; F17.210 Nicotine dependence, cigarettes, uncomplicated; Z79.899 Other long term (current) drug therapy; Z79.82 Long term (current) use of aspirin; Z88.0 Allergy status to penicillin; Z88.2 Allergy status to sulfonamides; Z88.1 Allergy status to other antibiotic agents; Z88.6 Allergy status to analgesic agent; Z88.8 Allergy status to other drugs, medicaments and biological substances

== ENCOUNTER → 2017-11-12 | Outpatient (CLI) | payer MEDICARE ==
[~2017-11-12] MED LIST changes: +CHLORZOXAZONE500 M2 PO
== END | disposition home or self-care (01) ==
LOC: RAD 11:18
DX: M47.896 Other spondylosis, lumbar region (principal); M54.42 Lumbago with sciatica, left side

== ENCOUNTER → 2017-11-20 | Outpatient (CLI) | payer MEDICARE | END | disposition home or self-care (01) | LOC: MRI 02:43 | DX: M47.896 Other spondylosis, lumbar region (principal); M47.818 Spondylosis without myelopathy or radiculopathy, sacral and sacrococcygeal region; M51.36 Other intervertebral disc degeneration, lumbar region ==

== ENCOUNTER 2017-12-02 17:59 | Emergency (ER) | payer MEDICARE ==
[~2017-12-02] VITALS: Ht 165.1 cm; Wt 72.6 kg
[2017-12-02] MEDS ORDERED: NORCO 5-325 TA1 EACH PO (19:04)
== END 2017-12-02 19:17 | disposition home or self-care (01) ==
LOC: ED 17:59
DX: M54.42 Lumbago with sciatica, left side (principal); F17.210 Nicotine dependence, cigarettes, uncomplicated; Z79.82 Long term (current) use of aspirin; Z79.899 Other long term (current) drug therapy; Z88.0 Allergy status to penicillin; Z88.2 Allergy status to sulfonamides; Z88.1 Allergy status to other antibiotic agents; Z88.3 Allergy status to other anti-infective agents; Z88.8 Allergy status to other drugs, medicaments and biological substances; Z88.6 Allergy status to analgesic agent

== ENCOUNTER 2017-12-30 07:59 | Emergency (ER) | payer MEDICARE ==
[~2017-12-30] VITALS: Ht 160 cm; Wt 62.1 kg
[2017-12-30] MEDS ORDERED: Ciprofloxacin500 MG PO (08:05)
[2017-12-30] MEDS ORDERED: VALIUM5 MG PO (08:05)
[2017-12-30] MEDS ORDERED: KENALOG 0.1%80 GM T (10:26)
[2017-12-30] MEDS ORDERED: MEDROL DOSEPAK4 MG PO (10:27)
[2017-12-30] MEDS ORDERED: LACTULOSE10 GM/151 PO (11:44)
== END 2017-12-30 11:35 | disposition home or self-care (01) ==
LOC: ED 07:59
DX: L27.0 Generalized skin eruption due to drugs and medicaments taken internally (principal); T45.0X5A Adverse effect of antiallergic and antiemetic drugs, initial encounter; M79.605 Pain in left leg; K21.9 Gastro-esophageal reflux disease without esophagitis; E78.5 Hyperlipidemia, unspecified; Z87.01 Personal history of pneumonia (recurrent); Z79.82 Long term (current) use of aspirin; Z79.899 Other long term (current) drug therapy; Z98.890 Other specified postprocedural states; Z88.6 Allergy status to analgesic agent; Z88.5 Allergy status to narcotic agent; Z88.0 Allergy status to penicillin; Z88.2 Allergy status to sulfonamides; Z88.8 Allergy status to other drugs, medicaments and biological substances; Y92.89 Other specified places as the place of occurrence of the external cause

== ENCOUNTER → 2018-10-13 | Outpatient (CLI) | payer MEDICARE ==
[~2018-10-13] MED LIST changes: +CYCLOBENZAPRINE10 MG PO; +Ciprofloxacin500 MG PO; +HYDROCODONE-AC1 EACH PO; +KENALOG 0.1%80 GM T; +LACTULOSE10 GM/151 PO; +MS CONTIN30 MG PO; +NEURONTIN300 MG PO; +REGLAN10 M1 PO; +VALIUM5 MG PO
== END | disposition home or self-care (01) ==
LOC: RAD 13:00
DX: Z13.820 Encounter for screening for osteoporosis (principal); R29.890 Loss of height; M54.42 Lumbago with sciatica, left side; Z78.0 Asymptomatic menopausal state

== ENCOUNTER 2019-01-20 17:16 | Emergency (ER) | payer MEDICARE ==
[~2019-01-20] VITALS: Ht 157.4 cm; Wt 54.4 kg
--- NOTE | ~2019-01-20 | EKG ---
[place], [place] ELECTROCARDIOGRAM REPORT NAME: KIERAN WILLINGHAM UNIT #: [id number] ROOM: DOCTOR: EPIPHANY DRAFT REPORT BIRTHDATE: [birth year] [facility] Test Date: 2019-01-20 Test Time: 17:53:34 Pat Name: KIERAN WILLINGHAM Department: Room: Gender: F Senior Hardware Engineer: Melissa Mota : 1945 Requested By: ANDREIA ANDRE PA-C Order Number: [id number] Reading MD: Imtiaz Langston MD Measurements Intervals [place] Rate: 62 P: 41 AK: 130 QRS: -4 QRSD: 82 T: 85 QT: 405 QTc: 412 Interpretive Statements Sinus rhythm Minimal ST depression, lateral leads Borderline ST elevation, anterior leads No previous ECG available for comparison Electronically Signed On 01-21-2019 5:07:07 PDT by Imtiaz Langston MD CM:EKGRPT:ELECTROCARDIOGRAM REPORT [id number] ANDREIA ANDRE PA-C EPIPHJESSE DRAFT REPORT ADNREIA ANDRE PA-C
[~2019-01-20 17:16] MED LIST changes: -REGLAN10 M1 PO
[2019-01-20 18:04] LABS: BASO % 0.5 % (0.0-1.0); EOS % 0.4 % (1.0-4.0); HEMOGLOBIN 18.2 g/dl (12.0-16.0); LYMPH % 24.1 % (27.0-41.0); MEAN CELL VOLUME 101.1 fl (81.0-99.0); MEAN CORPUSCULAR HGB 34.1 pg (27.0-31.0); MEAN CORPUSCULAR HGB CONC 33.7 g/dl (33.0-37.0); MEAN PLATELET VOLUME 8.8 fl (9.6-12.3); MONO # 0.6 10*3/uL (0.1-1.0); MONO % 7.7 % (3.0-9.0); NEUT # 5.5 10*3/uL (2.3-7.9); NEUT % 66.9 % (47.0-73.0); PLATELET COUNT AUTOMATED 194 10*3/uL (130-400); RED BLOOD COUNT 5.34 10*6/uL (4.10-5.10); RED CELL DISTRI WIDTH 12.4 % (0-14.5); WHITE BLOOD COUNT 8.2 10*3/uL (4.8-10.8)
[2019-01-20 18:08] LABS: BILIRUBIN NEGATIVE (NEGATIVE); BLOOD NEGATIVE (NEGATIVE); CLARITY CLEAR (CLEAR); COLOR YELLOW (YELLOW); GLUCOSE NEGATIVE (NEGATIVE); KETONE NEGATIVE (NEGATIVE); LEUKO ESTERASE 2+ (NEGATIVE); NITRITE NEGATIVE (NEGATIVE); UROBILINOGEN 0.2 E.U./dl (0.2-1.0)
[2019-01-20 18:27] LABS: BACTERIA 2+
[2019-01-20 18:30] LABS: ALBUMIN 4.3 gm/dl (3.1-4.5); ALKALINE PHOSPHATASE 100 U/L (45-117); BUN 10 mg/dl (7-24); CHLORIDE 104 mmol/L (98-107); CREATININE 0.74 mg/dL (0.55-1.02); LIPASE 60 U/L (73-393); POTASSIUM 4.5 mmol/L (3.5-5.1); SGOT/AST 43 IU/L (3-35); SGPT/ALT 34 U/L (12-78); SODIUM 141 mmol/L (136-145)
[2019-01-20 18:47] LABS: TROPONIN I < 0.015 ng/ml (<0.045)
[2019-01-20] MEDS ORDERED: REGLAN10 M1 PO (22:13)
== END 2019-01-20 22:10 | disposition home or self-care (01) ==
LOC: ED 17:16
PROVIDERS: Physician Assistant
DX: R11.0 Nausea (principal); Z98.890 Other specified postprocedural states; Z79.899 Other long term (current) drug therapy; F17.210 Nicotine dependence, cigarettes, uncomplicated; Z79.82 Long term (current) use of aspirin; Z88.0 Allergy status to penicillin; Z88.2 Allergy status to sulfonamides; Z88.8 Allergy status to other drugs, medicaments and biological substances; Z88.6 Allergy status to analgesic agent

== ENCOUNTER → 2019-06-29 | Outpatient (CLI) | payer MEDICARE ==
[~2019-06-29] MED LIST changes: +REGLAN10 M1 PO
== END | disposition home or self-care (01) ==
LOC: CT 16:59
DX: M47.818 Spondylosis without myelopathy or radiculopathy, sacral and sacrococcygeal region (principal); N28.1 Cyst of kidney, acquired; M43.27 Fusion of spine, lumbosacral region; M34.2 Systemic sclerosis induced by drug and chemical

== ENCOUNTER 2020-09-24 10:47 | Emergency (ER) | payer MEDICARE ==
[~2020-09-24] VITALS: Ht 157.4 cm; Wt 54.4 kg
[2020-09-24 11:42] LABS: BASO % 0.3 % (0.0-1.0); EOS % 0.2 % (1.0-4.0); LYMPH # 1.3 10*3/uL (1.3-4.4); LYMPH % 14.3 % (27.0-41.0); MEAN CELL VOLUME 98.8 fl (81.0-99.0); MEAN CORPUSCULAR HGB 32.9 pg (27.0-31.0); MEAN CORPUSCULAR HGB CONC 33.3 g/dl (33.0-37.0); MEAN PLATELET VOLUME 8.4 fl (9.6-12.3); MONO # 0.4 10*3/uL (0.1-1.0); MONO % 4.2 % (3.0-9.0); NEUT # 7.2 10*3/uL (2.3-7.9); NEUT % 80.7 % (47.0-73.0); PLATELET COUNT AUTOMATED 204 10*3/uL (130-400); RED BLOOD COUNT 5.16 10*6/uL (4.10-5.10); RED CELL DISTRI WIDTH 11.8 % (0-14.5)
[2020-09-24 12:00] LABS: ALBUMIN 3.5 gm/dl (3.1-4.5); ALKALINE PHOSPHATASE 89 U/L (45-117); BUN 12 mg/dl (7-24); CHLORIDE 107 mmol/L (98-107); SGOT/AST 21 IU/L (3-35); SGPT/ALT 30 U/L (12-78); SODIUM 138 mmol/L (136-145); TOTAL PROTEIN 6.8 gm/dL (6.4-8.2)
[2020-09-24 12:20] LABS: LIPASE 51 U/L (73-393)
[2020-09-24 12:26] LABS: TROPONIN I < 0.015 ng/ml (<0.045)
[2020-09-24 13:03] LABS: BILIRUBIN Negative (Negative); BLOOD Negative (Negative); CLARITY Clear (Clear); COLOR Yellow (Yellow); GLUCOSE Negative (Negative); KETONE Negative (Negative); LEUKO ESTERASE Trace (Negative); NITRITE Negative (Negative); SPECIFIC GRAVITY <= 1.005 (1.001-1.030); UROBILINOGEN 0.2 E.U./dl (0.0-1.0)
[2020-09-24 13:05] LABS: PH 8.5 (4.5-8.0)
[2020-09-24 13:17] LABS: RBC 0-2 rbc/hpf (0-2)
[2020-09-24 13:18] LABS: BACTERIA TRACE; EPITHELIAL CELLS 0-2
[2020-09-24] MEDS ORDERED: ZOFRAN4 MG PO (14:22)
== END 2020-09-24 14:46 | disposition home or self-care (01) ==
LOC: ED 10:47
PROVIDERS: Nurse Practitioner
DX: K52.9 Noninfective gastroenteritis and colitis, unspecified (principal); E86.0 Dehydration; F17.210 Nicotine dependence, cigarettes, uncomplicated; Z79.899 Other long term (current) drug therapy; Z79.82 Long term (current) use of aspirin; Z88.2 Allergy status to sulfonamides; Z88.1 Allergy status to other antibiotic agents; Z88.3 Allergy status to other anti-infective agents; Z88.0 Allergy status to penicillin; Z88.6 Allergy status to analgesic agent

== ENCOUNTER → 2020-12-10 | Outpatient (CLI) | payer MEDICARE ==
[~2020-12-10] MED LIST changes: +ZOFRAN4 MG PO
== END | disposition home or self-care (01) ==
LOC: RAD 11-20 08:57
PROVIDERS: ATTEND Nurse Practitioner Primary Care
DX: M85.89 Other specified disorders of bone density and structure, multiple sites (principal); Z78.0 Asymptomatic menopausal state

== ENCOUNTER 2021-05-05 10:14 | Emergency (ER) | payer MEDICARE ==
[~2021-05-05] VITALS: Ht 157.4 cm; Wt 52.2 kg
[2021-05-05 11:42] LABS: BASO % 0.1 % (0.0-1.0); HEMATOCRIT 50.2 % (37.0-47.0); LYMPH # 0.9 10*3/uL (1.3-4.4); LYMPH % 8.5 % (27.0-41.0); MEAN CELL VOLUME 101.6 fl (81.0-99.0); MEAN CORPUSCULAR HGB 33.4 pg (27.0-31.0); MEAN CORPUSCULAR HGB CONC 32.9 g/dl (33.0-37.0); MEAN PLATELET VOLUME 8.6 fl (9.6-12.3); MONO # 0.6 10*3/uL (0.1-1.0); MONO % 5.7 % (3.0-9.0); NEUT % 85.3 % (47.0-73.0); PLATELET COUNT AUTOMATED 145 10*3/uL (130-400); RED BLOOD COUNT 4.94 10*6/uL (4.10-5.10); RED CELL DISTRI WIDTH 12.1 % (0-14.5); WHITE BLOOD COUNT 10.6 10*3/uL (4.8-10.8)
[2021-05-05 11:56] LABS: ALBUMIN 3.3 gm/dl (3.1-4.5); ALKALINE PHOSPHATASE 97 U/L (45-117); BUN 9 mg/dl (7-24); CHLORIDE 108 mmol/L (98-107); CPK 57 U/L (26-192); CREATININE 0.58 mg/dL (0.55-1.02); POTASSIUM 4.3 mmol/L (3.5-5.1); SGOT/AST 15 IU/L (3-35); SGPT/ALT 26 U/L (12-78); SODIUM 138 mmol/L (136-145); TOTAL PROTEIN 7.3 gm/dL (6.4-8.2)
[2021-05-05] MEDS ORDERED: PROVENTIL HFA6.7 GM INH (13:34)
[2021-05-05] MEDS ORDERED: PREDNISONE20 M1 PO (13:34)
[2021-05-05] MEDS ORDERED: SYMB160 INH (13:34)
== END 2021-05-05 17:07 | disposition home or self-care (01) ==
LOC: ED 10:14
PROVIDERS: Emergency Medicine
DX: U07.1 COVID-19 (principal); D75.1 Secondary polycythemia; J44.9 Chronic obstructive pulmonary disease, unspecified; K21.9 Gastro-esophageal reflux disease without esophagitis; E78.5 Hyperlipidemia, unspecified; Z88.6 Allergy status to analgesic agent; Z88.1 Allergy status to other antibiotic agents; Z88.8 Allergy status to other drugs, medicaments and biological substances; Z79.899 Other long term (current) drug therapy; Z79.82 Long term (current) use of aspirin

== ENCOUNTER 2021-05-20 22:39 | Inpatient (IN) | payer MEDICARE ==
[~2021-05-20] VITALS: Ht 160 cm; Wt 51.5 kg
[~2021-05-20 22:39] MED LIST changes: +PREDNISONE20 M1 PO; +PROVENTIL HFA6.7 GM INH; +SYMB160 INH
[2021-05-20] MEDS ORDERED: MS CONTIN30 MG PO (23:17)
[2021-05-20 23:18] VITALS: BP 123/91
[2021-05-20 23:55] LABS: BASO % 0.3 % (0.0-1.0); EOS % 0.3 % (1.0-4.0); HEMATOCRIT 45.8 % (37.0-47.0); LYMPH # 1.5 10*3/uL (1.3-4.4); LYMPH % 13.1 % (27.0-41.0); MEAN CELL VOLUME 99.3 fl (81.0-99.0); MEAN CORPUSCULAR HGB CONC 33.2 g/dl (33.0-37.0); MEAN PLATELET VOLUME 8.1 fl (9.6-12.3); MONO # 0.6 10*3/uL (0.1-1.0); MONO % 4.8 % (3.0-9.0); NEUT # 9.3 10*3/uL (2.3-7.9); NEUT % 81.1 % (47.0-73.0); PLATELET COUNT AUTOMATED 288 10*3/uL (130-400); RED BLOOD COUNT 4.61 10*6/uL (4.10-5.10); RED CELL DISTRI WIDTH 11.9 % (0-14.5); WHITE BLOOD COUNT 11.5 10*3/uL (4.8-10.8)
[2021-05-21 00:11] LABS: ALKALINE PHOSPHATASE 89 U/L (45-117); BUN 11 mg/dl (7-24); CHLORIDE 106 mmol/L (98-107); CREATININE 0.61 mg/dL (0.55-1.02); POTASSIUM 3.8 mmol/L (3.5-5.1); SGOT/AST 13 IU/L (3-35); SGPT/ALT 24 U/L (12-78); SODIUM 138 mmol/L (136-145)
[2021-05-21 03:50] LABS: BILIRUBIN Negative (Negative); BLOOD Negative (Negative); CLARITY Clear (Clear); COLOR Yellow (Yellow); GLUCOSE Negative (Negative); KETONE Negative (Negative); LEUKO ESTERASE 1+ (Negative); NITRITE Negative (Negative); PH 6.5 (4.5-8.0); SPECIFIC GRAVITY <= 1.005 (1.001-1.030); UROBILINOGEN 0.2 E.U./dl (0.0-1.0)
[2021-05-21 03:56] VITALS: BP 123/74
[2021-05-21] MEDS ORDERED: COLACE100 MG PO (05:42)
[2021-05-21] MEDS ORDERED: VITAMIN D3125 MC1 PO (05:44)
[2021-05-21] MEDS ORDERED: B COMPLEX1 EACH PO (05:45)
[2021-05-21] MEDS ORDERED: CALCIUM CITRAT200 M1 PO (05:46)
[2021-05-21 06:51] LABS: BASO % 0.3 % (0.0-1.0); EOS # 0.1 10*3/uL (0.0-0.4); EOS % 1.2 % (1.0-4.0); HEMATOCRIT 43.7 % (37.0-47.0); LYMPH # 2.1 10*3/uL (1.3-4.4); LYMPH % 21.1 % (27.0-41.0); MEAN CELL VOLUME 101.9 fl (81.0-99.0); MEAN CORPUSCULAR HGB 33.3 pg (27.0-31.0); MEAN CORPUSCULAR HGB CONC 32.7 g/dl (33.0-37.0); MEAN PLATELET VOLUME 8.1 fl (9.6-12.3); MONO # 0.6 10*3/uL (0.1-1.0); MONO % 5.5 % (3.0-9.0); NEUT # 7.2 10*3/uL (2.3-7.9); NEUT % 71.4 % (47.0-73.0); PLATELET COUNT AUTOMATED 280 10*3/uL (130-400); RED BLOOD COUNT 4.29 10*6/uL (4.10-5.10); RED CELL DISTRI WIDTH 11.9 % (0-14.5); WHITE BLOOD COUNT 10.1 10*3/uL (4.8-10.8)
[2021-05-21 07:04] VITALS: BP 130/74
[2021-05-21 07:13] LABS: CHLORIDE 112 mmol/L (98-107); POTASSIUM 4.1 mmol/L (3.5-5.1); SODIUM 142 mmol/L (136-145)
[2021-05-21 07:37] LABS: BUN 8 mg/dl (7-24); CREATININE 0.44 mg/dL (0.55-1.02)
[2021-05-21 08:30] VITALS: BP 153/73
[2021-05-21] MEDS ORDERED: MELATONIN10 M2 PO (10:03)
[2021-05-21] MEDS ORDERED: MIRALAX POWDER17 G1 PO (10:05)
[2021-05-21] MEDS ORDERED: MINIPRESS2 M2 PO (10:08)
[2021-05-21] MEDS ORDERED: SYMB160 INH (10:09)
[2021-05-21 12:00] VITALS: BP 150/61
[2021-05-21 16:00] VITALS: BP 152/52
[2021-05-21 20:00] VITALS: BP 133/62
[2021-05-22] VITALS: BP 153/72
[2021-05-22 07:24] LABS: BASO % 0.3 % (0.0-1.0); EOS % 0.1 % (1.0-4.0); LYMPH # 2.3 10*3/uL (1.3-4.4); LYMPH % 14.8 % (27.0-41.0); MEAN CELL VOLUME 99.8 fl (81.0-99.0); MEAN CORPUSCULAR HGB CONC 33.1 g/dl (33.0-37.0); MEAN PLATELET VOLUME 8.5 fl (9.6-12.3); MONO # 0.8 10*3/uL (0.1-1.0); MONO % 5.3 % (3.0-9.0); NEUT # 12.2 10*3/uL (2.3-7.9); PLATELET COUNT AUTOMATED 341 10*3/uL (130-400); RED BLOOD COUNT 4.51 10*6/uL (4.10-5.10); RED CELL DISTRI WIDTH 11.9 % (0-14.5); WHITE BLOOD COUNT 15.5 10*3/uL (4.8-10.8)
[2021-05-22 07:42] LABS: BUN 11 mg/dl (7-24); CHLORIDE 115 mmol/L (98-107); CREATININE 0.37 mg/dL (0.55-1.02); SODIUM 142 mmol/L (136-145)
[2021-05-22 08:00] VITALS: BP 147/60
[2021-05-22 12:00] VITALS: BP 174/78
[2021-05-22 16:00] VITALS: BP 146/96
[2021-05-22 20:00] VITALS: BP 149/76
[2021-05-23] VITALS: BP 125/67
[2021-05-23 06:40] LABS: BASO % 0.2 % (0.0-1.0); EOS % 0.1 % (1.0-4.0); HEMATOCRIT 41.6 % (37.0-47.0); LYMPH # 2.1 10*3/uL (1.3-4.4); LYMPH % 14.6 % (27.0-41.0); MEAN CELL VOLUME 100.2 fl (81.0-99.0); MEAN CORPUSCULAR HGB 32.5 pg (27.0-31.0); MEAN CORPUSCULAR HGB CONC 32.5 g/dl (33.0-37.0); MEAN PLATELET VOLUME 8.6 fl (9.6-12.3); MONO # 0.8 10*3/uL (0.1-1.0); MONO % 5.7 % (3.0-9.0); NEUT # 11.2 10*3/uL (2.3-7.9); NEUT % 78.8 % (47.0-73.0); PLATELET COUNT AUTOMATED 277 10*3/uL (130-400); RED BLOOD COUNT 4.15 10*6/uL (4.10-5.10); RED CELL DISTRI WIDTH 12.1 % (0-14.5); WHITE BLOOD COUNT 14.2 10*3/uL (4.8-10.8)
[2021-05-23 06:55] LABS: BUN 20 mg/dl (7-24); CHLORIDE 114 mmol/L (98-107); SODIUM 143 mmol/L (136-145)
[2021-05-23 08:00] VITALS: BP 138/83
[2021-05-23] MEDS ORDERED: CIPRO500 MG PO (09:56)
[2021-05-23] MEDS ORDERED: PREDNISONE10 MG PO (09:56)
== END 2021-05-23 12:38 | disposition home or self-care (01) | DRG 177 ==
LOC: ED 22:39 → 4E 05-21 05:10 → EDHOLD 05-21 05:10 → 4E 05-21 07:01
PROVIDERS: Emergency Medicine; Hospitalist; Student in an Organized Health Care Education/Training Program; ADMIT Family Medicine; ATTEND Family Medicine
DX: U07.1 COVID-19 (principal); J96.01 Acute respiratory failure with hypoxia; N17.0 Acute kidney failure with tubular necrosis; J18.9 Pneumonia, unspecified organism; J45.41 Moderate persistent asthma with (acute) exacerbation; E44.0 Moderate protein-calorie malnutrition; J98.11 Atelectasis; D75.1 Secondary polycythemia; J40 Bronchitis, not specified as acute or chronic; R00.1 Bradycardia, unspecified; R73.9 Hyperglycemia, unspecified; E87.8 Other disorders of electrolyte and fluid balance, not elsewhere classified; E83.41 Hypermagnesemia; E78.5 Hyperlipidemia, unspecified; K21.9 Gastro-esophageal reflux disease without esophagitis; Z88.1 Allergy status to other antibiotic agents; Z88.2 Allergy status to sulfonamides; Z88.0 Allergy status to penicillin; Z88.8 Allergy status to other drugs, medicaments and biological substances; Z83.3 Family history of diabetes mellitus; Z88.6 Allergy status to analgesic agent; Z79.1 Long term (current) use of non-steroidal anti-inflammatories (NSAID); Z79.82 Long term (current) use of aspirin; Z79.899 Other long term (current) drug therapy; Z68.20 Body mass index [BMI] 20.0-20.9, adult

== ENCOUNTER 2021-09-18 18:26 | Emergency (ER) | payer MEDICARE ==
[~2021-09-18] VITALS: Wt 49.9 kg
[~2021-09-18 18:26] MED LIST changes: +B COMPLEX1 EACH PO; +CALCIUM CITRAT200 M1 PO; +COLACE100 MG PO; +MELATONIN10 M2 PO; +MIRALAX POWDER17 G1 PO; +VITAMIN D3125 MC1 PO
[2021-09-18 18:59] LABS: BILIRUBIN Negative (Negative); BLOOD Negative (Negative); CLARITY Clear (Clear); COLOR Yellow (Yellow); GLUCOSE Negative (Negative); KETONE Negative (Negative); LEUKO ESTERASE 2+ (Negative); NITRITE Negative (Negative); SPECIFIC GRAVITY <= 1.005 (1.001-1.030); UROBILINOGEN 0.2 E.U./dl (0.0-1.0)
[2021-09-18 19:05] LABS: BACTERIA 1+
[2021-09-18 20:54] LABS: BASO % 0.2 % (0.0-1.0); EOS % 0.4 % (1.0-4.0); HEMATOCRIT 49.7 % (37.0-47.0); LYMPH # 1.7 10*3/uL (1.3-4.4); LYMPH % 15.6 % (27.0-41.0); MEAN CORPUSCULAR HGB 33.8 pg (27.0-31.0); MEAN CORPUSCULAR HGB CONC 33.8 g/dl (33.0-37.0); MEAN PLATELET VOLUME 8.4 fl (9.6-12.3); MONO # 0.6 10*3/uL (0.1-1.0); MONO % 5.6 % (3.0-9.0); NEUT # 8.5 10*3/uL (2.3-7.9); NEUT % 77.9 % (47.0-73.0); PLATELET COUNT AUTOMATED 209 10*3/uL (130-400); RED BLOOD COUNT 4.97 10*6/uL (4.10-5.10); RED CELL DISTRI WIDTH 11.9 % (0-14.5); WHITE BLOOD COUNT 10.9 10*3/uL (4.8-10.8)
[2021-09-18 21:10] LABS: ALKALINE PHOSPHATASE 74 U/L (45-117); BUN 11 mg/dl (7-24); CHLORIDE 106 mmol/L (98-107); CREATININE 0.51 mg/dL (0.55-1.02); POTASSIUM 3.7 mmol/L (3.5-5.1); SGOT/AST 19 IU/L (3-35); SGPT/ALT 24 U/L (12-78); SODIUM 138 mmol/L (136-145)
== END 2021-09-18 22:06 | disposition home or self-care (01) ==
LOC: ED 18:26
PROVIDERS: Emergency Medicine; Physician Assistant
DX: R10.9 Unspecified abdominal pain (principal); Z79.899 Other long term (current) drug therapy; Z88.6 Allergy status to analgesic agent; Z88.5 Allergy status to narcotic agent; Z88.0 Allergy status to penicillin; Z88.2 Allergy status to sulfonamides; Z88.3 Allergy status to other anti-infective agents

== ENCOUNTER → 2022-01-14 | Outpatient (CLI) | payer MEDICARE | END | disposition home or self-care (01) | LOC: US 10:30 | PROVIDERS: ATTEND Family Medicine | DX: I72.1 Aneurysm of artery of upper extremity (principal) ==

== ENCOUNTER 2022-07-15 16:05 | Emergency (ER) | payer MEDICARE ==
[~2022-07-15] VITALS: Wt 46.3 kg
[2022-07-15 16:51] LABS: BASO % 0.4 % (0.0-1.0); EOS # 0.1 10*3/uL (0.0-0.4); EOS % 1.1 % (1.0-4.0); HEMATOCRIT 47.6 % (37.0-47.0); LYMPH # 0.7 10*3/uL (1.3-4.4); LYMPH % 8.5 % (27.0-41.0); MEAN CELL VOLUME 100.8 fl (81.0-99.0); MEAN CORPUSCULAR HGB 33.7 pg (27.0-31.0); MEAN CORPUSCULAR HGB CONC 33.4 g/dl (33.0-37.0); MEAN PLATELET VOLUME 8.2 fl (9.6-12.3); MONO # 0.4 10*3/uL (0.1-1.0); MONO % 4.7 % (3.0-9.0); NEUT # 7.1 10*3/uL (2.3-7.9); NEUT % 84.9 % (47.0-73.0); PLATELET COUNT AUTOMATED 278 10*3/uL (130-400); RED BLOOD COUNT 4.72 10*6/uL (4.10-5.10); RED CELL DISTRI WIDTH 11.5 % (0-14.5); WHITE BLOOD COUNT 8.3 10*3/uL (4.8-10.8)
[2022-07-15 17:10] LABS: ALKALINE PHOSPHATASE 66 U/L (46-116); BUN 18 mg/dl (9-23); CHLORIDE 102 mmol/L (98-107); POTASSIUM 4.1 mmol/L (3.4-5.1); SGPT/ALT 19 U/L (10-49); TOTAL PROTEIN 6.6 gm/dL (6.0-8.0)
[2022-07-15 18:59] LABS: BILIRUBIN Negative (Negative); BLOOD Negative (Negative); CLARITY Cloudy (Clear); COLOR Yellow (Yellow); GLUCOSE Negative (Negative); KETONE 1+ (Negative); LEUKO ESTERASE Negative (Negative); NITRITE Negative (Negative); SPECIFIC GRAVITY >= 1.030 (1.001-1.030); UROBILINOGEN 0.2 E.U./dl (0.0-1.0)
[2022-07-15 19:13] LABS: EPITHELIAL CELLS 0-2; RBC 0-2 rbc/hpf (0-2)
[2022-07-15 20:30] LABS: LIPASE 23 U/L (12-53)
[2022-07-16] MEDS ORDERED: PEPCID AC20 MG PO (02:33)
[2022-07-16] MEDS ORDERED: REGLAN10 M1 PO (02:33)
== END 2022-07-16 02:52 | disposition home or self-care (01) ==
LOC: ED 16:05
PROVIDERS: Emergency Medicine
DX: K29.70 Gastritis, unspecified, without bleeding (principal); L27.0 Generalized skin eruption due to drugs and medicaments taken internally; R07.9 Chest pain, unspecified; Z88.6 Allergy status to analgesic agent; Z88.8 Allergy status to other drugs, medicaments and biological substances; Z88.1 Allergy status to other antibiotic agents; Z88.0 Allergy status to penicillin; Z79.899 Other long term (current) drug therapy; Z79.82 Long term (current) use of aspirin; F17.210 Nicotine dependence, cigarettes, uncomplicated

== ENCOUNTER 2023-08-09 20:13 | Emergency (ER) | payer MEDICARE ==
[~2023-08-09] VITALS: Ht 157.4 cm; Wt 47.6 kg
[~2023-08-09 20:13] MED LIST changes: +PEPCID AC20 MG PO
[2023-08-09 21:02] LABS: BASO % 0.4 % (0.0-1.0); EOS # 0.1 10*3/uL (0.0-0.4); EOS % 0.9 % (1.0-4.0); HEMATOCRIT 50.5 % (37.0-47.0); LYMPH # 1.5 10*3/uL (1.3-4.4); LYMPH % 17.3 % (27.0-41.0); MEAN CELL VOLUME 102.4 fl (81.0-99.0); MEAN CORPUSCULAR HGB 33.3 pg (27.0-31.0); MEAN CORPUSCULAR HGB CONC 32.5 g/dl (33.0-37.0); MEAN PLATELET VOLUME 8.4 fl (9.6-12.3); MONO # 0.5 10*3/uL (0.1-1.0); MONO % 5.9 % (3.0-9.0); NEUT # 6.4 10*3/uL (2.3-7.9); NEUT % 75.1 % (47.0-73.0); PLATELET COUNT AUTOMATED 198 10*3/uL (130-400); RED BLOOD COUNT 4.93 10*6/uL (4.10-5.10); RED CELL DISTRI WIDTH 12.2 % (0-14.5); WHITE BLOOD COUNT 8.5 10*3/uL (4.8-10.8)
[2023-08-09 21:13] LABS: ACT PARTIAL THROMBO TIME 28.4 SECONDS (20.0-32.1)
[2023-08-09 21:22] LABS: ALKALINE PHOSPHATASE 79 U/L (46-116); BUN 14 mg/dl (9-23); CHLORIDE 107 mmol/L (98-107); POTASSIUM 3.9 mmol/L (3.4-5.1); SGPT/ALT 20 U/L (5-49); TOTAL PROTEIN 6.6 gm/dL (6.0-8.0)
[2023-08-10] MEDS ORDERED: methylPREDNISolone sod succ 125 MG VIAL IM ONE (00:35)
[2023-08-10] MEDS ORDERED: LEVOFLOXACIN 750 MG TAB PO ONE (01:30)
[2023-08-10] MEDS ORDERED: LEVOFLOXACIN750 M2 PO (03:05)
== END 2023-08-10 03:06 | disposition home or self-care (01) ==
LOC: ED 20:13
PROVIDERS: Nurse Practitioner Family
DX: J01.90 Acute sinusitis, unspecified (principal); Z20.822 Contact with and (suspected) exposure to COVID-19; B96.89 Other specified bacterial agents as the cause of diseases classified elsewhere; D75.89 Other specified diseases of blood and blood-forming organs; D75.1 Secondary polycythemia; E78.00 Pure hypercholesterolemia, unspecified; R73.9 Hyperglycemia, unspecified; I10 Essential (primary) hypertension; J45.909 Unspecified asthma, uncomplicated; E83.41 Hypermagnesemia; K21.9 Gastro-esophageal reflux disease without esophagitis; E78.5 Hyperlipidemia, unspecified; Z88.6 Allergy status to analgesic agent; Z88.5 Allergy status to narcotic agent; Z88.0 Allergy status to penicillin; Z88.8 Allergy status to other drugs, medicaments and biological substances; Z88.2 Allergy status to sulfonamides; Z98.890 Other specified postprocedural states; F17.210 Nicotine dependence, cigarettes, uncomplicated

== ENCOUNTER 2024-03-18 19:28 | Emergency (ER) | payer MEDICARE ==
[~2024-03-18] VITALS: Ht 157.4 cm; Wt 45.4 kg
[~2024-03-18 19:28] MED LIST changes: +LEVOFLOXACIN750 M2 PO
[2024-03-18 20:27] LABS: BASO % 0.1 % (0.0-1.0); HEMATOCRIT 50.1 % (37.0-47.0); LYMPH # 1.7 10*3/uL (1.3-4.4); LYMPH % 21.1 % (27.0-41.0); MEAN CELL VOLUME 102.9 fl (81.0-99.0); MEAN CORPUSCULAR HGB 34.1 pg (27.0-31.0); MEAN CORPUSCULAR HGB CONC 33.1 g/dl (33.0-37.0); MEAN PLATELET VOLUME 8.3 fl (9.6-12.3); MONO # 0.5 10*3/uL (0.1-1.0); MONO % 6.3 % (3.0-9.0); NEUT # 5.7 10*3/uL (2.3-7.9); NEUT % 72.1 % (47.0-73.0); PLATELET COUNT AUTOMATED 176 10*3/uL (130-400); RED BLOOD COUNT 4.87 10*6/uL (4.10-5.10); RED CELL DISTRI WIDTH 11.8 % (0-14.5); WHITE BLOOD COUNT 7.9 10*3/uL (4.8-10.8)
[2024-03-18 20:45] LABS: BUN 14 mg/dl (9-23); CHLORIDE 107 mmol/L (98-107)
== END 2024-03-18 22:46 | disposition home or self-care (01) ==
LOC: ED 19:28
PROVIDERS: Nurse Practitioner Family
DX: U07.1 COVID-19 (principal); E44.0 Moderate protein-calorie malnutrition; J45.909 Unspecified asthma, uncomplicated; K21.9 Gastro-esophageal reflux disease without esophagitis; E78.5 Hyperlipidemia, unspecified; F17.210 Nicotine dependence, cigarettes, uncomplicated; Z88.6 Allergy status to analgesic agent; Z88.0 Allergy status to penicillin; Z88.2 Allergy status to sulfonamides; Z88.1 Allergy status to other antibiotic agents; Z79.899 Other long term (current) drug therapy; Z79.2 Long term (current) use of antibiotics; Z79.82 Long term (current) use of aspirin; Z98.890 Other specified postprocedural states

== ENCOUNTER 2024-03-25 14:32 | Emergency (ER) | payer MEDICARE ==
[~2024-03-25] VITALS: Ht 157.4 cm; Wt 42.2 kg
[2024-03-25 15:30] LABS: BASO % 0.3 % (0.0-1.0); EOS % 0.4 % (1.0-4.0); HEMATOCRIT 52.1 % (37.0-47.0); LYMPH # 2.2 10*3/uL (1.3-4.4); LYMPH % 22.2 % (27.0-41.0); MEAN CELL VOLUME 102.2 fl (81.0-99.0); MEAN CORPUSCULAR HGB 34.1 pg (27.0-31.0); MEAN CORPUSCULAR HGB CONC 33.4 g/dl (33.0-37.0); MEAN PLATELET VOLUME 8.3 fl (9.6-12.3); MONO # 0.6 10*3/uL (0.1-1.0); MONO % 5.7 % (3.0-9.0); NEUT # 7.1 10*3/uL (2.3-7.9); NEUT % 70.6 % (47.0-73.0); PLATELET COUNT AUTOMATED 227 10*3/uL (130-400); RED CELL DISTRI WIDTH 11.8 % (0-14.5)
[2024-03-25] MEDS ORDERED: SODIUM CHLORIDE 0.9% 100 ML BAG IV ONE (15:35)
[2024-03-25] MEDS ORDERED: IOHEXOL 350 MG/ML 100 ML VIAL IV ONE (15:35)
[2024-03-25 15:48] LABS: ALKALINE PHOSPHATASE 72 U/L (46-116); BUN 11 mg/dl (9-23); CHLORIDE 107 mmol/L (98-107); POTASSIUM 4.2 mmol/L (3.4-5.1); SGPT/ALT 22 U/L (5-49); TOTAL PROTEIN 6.7 gm/dL (6.0-8.0)
[2024-03-25 17:37] LABS: ACT PARTIAL THROMBO TIME 26.5 SECONDS (20.0-32.1)
[2024-03-25] MEDS ORDERED: DEXAMETHASONE 4 MG TAB PO ONE (18:05)
[2024-03-25] MEDS ORDERED: DEXAMETHASONE6 MG PO (18:51)
== END 2024-03-25 19:51 | disposition home or self-care (01) ==
LOC: ED 14:32
PROVIDERS: Internal Medicine
DX: U07.1 COVID-19 (principal); K21.9 Gastro-esophageal reflux disease without esophagitis; J45.909 Unspecified asthma, uncomplicated; F17.210 Nicotine dependence, cigarettes, uncomplicated; Z88.6 Allergy status to analgesic agent; Z88.5 Allergy status to narcotic agent; Z88.0 Allergy status to penicillin; Z88.2 Allergy status to sulfonamides; Z88.1 Allergy status to other antibiotic agents; Z88.8 Allergy status to other drugs, medicaments and biological substances

== ENCOUNTER → 2024-08-11 | Outpatient (CLI) | payer MEDICARE ==
[~2024-08-11] MED LIST changes: +DEXAMETHASONE6 MG PO
== END | disposition home or self-care (01) ==
LOC: MRI 01:19
PROVIDERS: ATTEND Orthopaedic Surgery
DX: S83.281A Other tear of lateral meniscus, current injury, right knee, initial encounter (principal); M17.11 Unilateral primary osteoarthritis, right knee; R60.0 Localized edema; M25.461 Effusion, right knee; X58.XXXA Exposure to other specified factors, initial encounter; Y93.89 Activity, other specified; Y92.89 Other specified places as the place of occurrence of the external cause; Y99.8 Other external cause status

== ENCOUNTER 2024-12-24 16:39 | Emergency (ER) | payer MEDICARE ==
[~2024-12-24] VITALS: Ht 157.4 cm; Wt 42.6 kg
[2024-12-24] MEDS ORDERED: Ondansetron Hydrochloride 4 MG/2 ML VIAL IV ONE (17:20)
[2024-12-24] MEDS ORDERED: SODIUM CHLORIDE 0.45% 1,000 ML IV ONE (17:20)
[2024-12-24] MEDS ORDERED: IOHEXOL 300 MG/ML 100 ML VIAL IV ONE (17:25)
[2024-12-24 17:34] LABS: BASO # 0.0 10*3/uL (0.0-0.1); BASO % 0.5 % (0.0-1.0); EOS # 0.0 10*3/uL (0.0-0.4); EOS % 0.4 % (1.0-4.0); MEAN CELL VOLUME 103.7 fl (81.0-99.0); MEAN CORPUSCULAR HGB 34.6 pg (27.0-31.0); MEAN PLATELET VOLUME 8.2 fl (9.6-12.3); MONO # 0.5 10*3/uL (0.1-1.0); MONO % 5.8 % (3.0-9.0); NEUT # 6.0 10*3/uL (2.3-7.9); NEUT % 72.8 % (47.0-73.0); NUCLEATED RED BLOOD CELL 0.0 % (0.0-0.0); NUCLEATED RED BLOOD CELL 0.0 10*3/uL (0.0-0.0); PLATELET COUNT AUTOMATED 207 10*3/uL (130-400); RED CELL DISTRI WIDTH 12.7 % (0-14.5)
[2024-12-24] MEDS ORDERED: SODIUM CHLORIDE 0.9% 1,000 ML IV ONE (17:40)
[2024-12-24 17:47] LABS: BUN 11 mg/dl (9-23)
[2024-12-24 18:01] LABS: BILIRUBIN Negative (Negative); BLOOD Negative (Negative); CLARITY Clear (Clear); COLOR Yellow (Yellow); KETONE Negative (Negative); LEUKO ESTERASE Trace (Negative); NITRITE Negative (Negative); PH 7.5 (4.5-8.0); SPECIFIC GRAVITY 1.015 (1.001-1.030); UROBILINOGEN 0.2 E.U./dl (0.0-1.0)
[2024-12-24 18:12] LABS: BACTERIA 2+; MUCOUS TRACE
[2024-12-24] MEDS ORDERED: HYDROCODONE-AC1 EACH PO (18:21)
[2024-12-24] MEDS ORDERED: ATORVASTATIN CA40 M1 PO (18:25)
[2024-12-24] MEDS ORDERED: ACETAMINOPHEN 325 MG TAB PO ONE (19:25)
[2024-12-24] MEDS ORDERED: Ciprofloxacin Hydrochloride 500 MG TAB PO ONE (20:05)
[2024-12-24] MEDS ORDERED: CIPRO500 MG PO (20:08)
== END 2024-12-24 20:16 | disposition home or self-care (01) ==
LOC: ED 16:39
PROVIDERS: Nurse Practitioner Family
DX: S76.211A Strain of adductor muscle, fascia and tendon of right thigh, initial encounter (principal); N30.00 Acute cystitis without hematuria; I10 Essential (primary) hypertension; J45.909 Unspecified asthma, uncomplicated; Z79.899 Other long term (current) drug therapy; Z88.0 Allergy status to penicillin; Z88.1 Allergy status to other antibiotic agents; Z88.5 Allergy status to narcotic agent; Z88.8 Allergy status to other drugs, medicaments and biological substances; X58.XXXA Exposure to other specified factors, initial encounter; Y93.89 Activity, other specified; Y92.89 Other specified places as the place of occurrence of the external cause; Y99.8 Other external cause status

== ENCOUNTER → 2025-01-06 | Outpatient (CLI) | payer MEDICARE ==
[~2025-01-06] MED LIST changes: +ATORVASTATIN CA40 M1 PO
== END | disposition home or self-care (01) ==
LOC: MRI 00:35
PROVIDERS: ATTEND Orthopaedic Surgery
DX: S73.191A Other sprain of right hip, initial encounter (principal); M25.551 Pain in right hip; X58.XXXA Exposure to other specified factors, initial encounter; Y93.89 Activity, other specified; Y92.89 Other specified places as the place of occurrence of the external cause; Y99.8 Other external cause status

== ENCOUNTER → 2025-02-13 | Outpatient (CLI) | payer MEDICARE ==
[2025-02-13 18:10] LABS: BASO # 0.0 10*3/uL (0.0-0.1); BASO % 0.3 % (0.0-1.0); EOS # 0.0 10*3/uL (0.0-0.4); EOS % 0.2 % (1.0-4.0); MEAN CELL VOLUME 105.2 fl (81.0-99.0); MEAN CORPUSCULAR HGB 35.6 pg (27.0-31.0); MEAN PLATELET VOLUME 8.8 fl (9.6-12.3); MONO # 0.4 10*3/uL (0.1-1.0); MONO % 4.9 % (3.0-9.0); NEUT # 7.1 10*3/uL (2.3-7.9); NEUT % 80.1 % (47.0-73.0); NUCLEATED RED BLOOD CELL 0.0 % (0.0-0.0); NUCLEATED RED BLOOD CELL 0.0 10*3/uL (0.0-0.0); PLATELET COUNT AUTOMATED 241 10*3/uL (130-400); RED CELL DISTRI WIDTH 11.9 % (0-14.5)
[2025-02-13 18:22] LABS: BUN 17 mg/dl (9-23); SGPT/ALT 18 U/L (5-49)
== END ==
LOC: LAB 14:21
PROVIDERS: ATTEND Nurse Practitioner Family
DX: Z13.0 Encounter for screening for diseases of the blood and blood-forming organs and certain disorders involving the immune mechanism (principal); Z13.29 Encounter for screening for other suspected endocrine disorder; Z13.1 Encounter for screening for diabetes mellitus; Z79.899 Other long term (current) drug therapy

== ENCOUNTER → 2025-02-24 | Outpatient (CLI) | payer MEDICARE ==
[2025-02-24 18:23] LABS: LDL CHOLESTEROL 71.0 mg/dL (9-159)
== END | disposition home or self-care (01) ==
LOC: LAB 17:30
PROVIDERS: ATTEND Nurse Practitioner Family
DX: E78.2 Mixed hyperlipidemia (principal)